=== PATIENT | female | born 1980 | race Hispanic/Latino ===

== ENCOUNTER 2019-07-12 18:35 | Emergency (ER) | payer SELFPAY ==
[2019-07-12] MEDS ORDERED: Ibuprofen 200 MG TAB ONE (20:58)
[2019-07-12] MEDS ORDERED: Bicillin LA 1.2 MILLION UNITS/2 ML SYRINGE ONE (20:58)
[2019-07-12] MEDS ORDERED: Dexamethasone 4 mg/ml Vial ONE (20:58)
== END 2019-07-12 23:24 | disposition home or self-care (01) ==
LOC: ERS 18:35
DX: J02.0 Streptococcal pharyngitis (principal)
CPT/HCPCS: 87430; 87804; 96372; 99283; J0561; J1100